=== PATIENT | female | born 1970 | race Hispanic/Latino ===

== ENCOUNTER 2018-04-07 04:35 | Inpatient (IN) | payer MEDICARE ==
--- NOTE | 2018-04-07 04:52 | ED PDOC ---
Arrival/HPI - General Chief Complaint: Trauma Time Seen by Provider: 04/07/18 04:40 Historian: Patient - History of Present Illness Narrative History of Present Illness (Text): 04/07/18 04:52 Lyubov Arreaga is a 47 year old female, whose past medical history includes multiple sclerosis, chronic back pain s/p lumbar surgery, and PCOS, who presents to the ED complaining of generalized weakness, chronic secondary to her MS. Patient notes her generalized weakness has increased over the last few days and notes her legs have been giving out from under her. Patient reports she has fallen a few times and notes she injured her right knee. Patient denies any history of head trauma, loss of consciousness, dizziness, headache, chest pain, shortness of breath, nausea, vomiting, neck pain, or any other complaints. PMD: Dr. Willis Neurologist: Dr. Díaz Symptom Onset: Gradual Symptom Course: Unchanged Activities at Onset: Light Context: Home Past Medical History - Provider Review Nursing Documentation Reviewed: Yes - Infectious Disease Hx of Infectious Diseases: None - Cardiac Hx Cardiac Disorders: Yes Hx Hypertension: Yes - Pulmonary Hx Respiratory Disorders: No - Neurological Hx Neurological Disorder: Yes Other/Comment: ms - HEENT Hx HEENT Disorder: No - Renal Hx Dialysis: No - Endocrine/Metabolic Hx Endocrine Disorders: Yes Hx Diabetes Mellitus Type 2: Yes - Hematological/Oncological Hx Blood Disorders: No - Integumentary Hx Dermatological Disorder: No - Musculoskeletal/Rheumatological Hx Musculoskeletal Disorders: No - Gastrointestinal Hx Gastrointestinal Disorders: No - Genitourinary/Gynecological Hx Genitourinary Disorders: No - Psychiatric Hx Substance Use: No - Surgical History Hx Section: Yes Family/Social History - Physician Review Nursing Documentation Reviewed: Yes Family/Social History: Unknown Family HX Smoking Status: Never Smoked Hx Alcohol Use: No Hx Substance Use: No Allergies/Home Meds Allergies/Adverse Reactions: Allergies dimethyl fumarate [From Tecfidera] Allergy (Verified 04/07/18 04:43) ANGIOEDEMA nitrofurantoin [From Macrobid] Allergy (Verified 04/07/18 04:43) RASH Home Medications: Home Meds Medication Instructions Recorded Confirmed Gabapentin 600 mg PO TID 03/25/13 03/25/13 Metformin Hydrochloride [Metformin] 500 mg PO BID 03/25/13 03/25/13 Metoprolol Succinate XL [Toprol XL] 50 mg PO DAILY 03/25/13 03/25/13 Teriflunomide [Aubagio] 7 mg PO DAILY 03/25/13 03/25/13 Review of Systems - Physician Review All systems were reviewed & negative as marked: Yes - Review of Systems Constitutional: Other (+generalized weakness). absent: Fevers Eyes: Normal ENT: Normal Respiratory: Normal. absent: SOB, Cough Cardiovascular: Normal. absent: Chest Pain Gastrointestinal: Normal. absent: Abdominal Pain, Diarrhea, Nausea, Vomiting Genitourinary Female: Normal Musculoskeletal: Arthralgias (+right knee pain) Skin: Normal. absent: Rash Neurological: Normal. absent: Headache, Dizziness Endocrine: Normal Hemo/Lymphatic: Normal Psychiatric: Normal Physical Exam Vital Signs Reviewed: Yes Temperature: Afebrile Blood Pressure: Normal Pulse: Regular Respiratory Rate: Normal Appearance: Positive for: Well-Appearing, Non-Toxic, Comfortable Pain Distress: None Mental Status: Positive for: Alert and Oriented X 3 - Systems Exam Head: Present: Atraumatic, Normocephalic Pupils: Present: PERRL Extroacular Muscles: Present: EOMI Conjunctiva: Present: Normal Ears: Present: NORMAL TM Mouth: Present: Moist Mucous Membranes Pharnyx: Present: Normal Neck: Present: Normal Range of Motion Respiratory/Chest: Present: Clear to Auscultation, Good Air Exchange. No: Respiratory Distress, Accessory Muscle Use Cardiovascular: Present: Regular Rate and Rhythm, Normal S1, S2. No: Murmurs Abdomen: No: Tenderness, Distention, Peritoneal Signs Back: Present: Normal Inspection Upper Extremity: Present: Normal Inspection. No: Cyanosis, Edema Lower Extremity: Present: Tenderness (Pain in right knee with flexion). No: Edema Neurological: Present: GCS=15, CN II-XII Intact, Speech Normal, Motor Func Grossly Intact, Normal Sensory Function Skin: Present: Warm, Dry, Normal Color. No: Rashes Psychiatric: Present: Alert, Oriented x 3, Normal Insight, Normal Concentration Medical Decision Making ED Course and Treatment: 04/07/18 04:52 Impression: 47 year old female complaining of generalized weakness, frequent falls, and right knee pain. Plan: -- EKG -- CXR -- XR Right Knee -- Labs, cardiac enzymes --Reassess Prior Visits: Notes and results from previous visits were reviewed. Progress Notes: Reviewed EKG, sinus tachycardia at [address] or T wave elevations or depressions. Normal intervals.] 04/07/18 06:18 Reviewed radiology, CXR shows poor inspiratory film, no acute processes. XR Right Knee shows no acute processes/fracture. 04/07/18 06:55 Patient to be placed on the hospitalist service for further evaluation/neurology consultation/hospitalist notified/awaiting callback/endorsed to oncoming emergency department attending - RAD Interpretation Director Immunology: ED Physician - EKG Interpretation Interpreted by ED Physician: Yes Type: 12 lead EKG - Scribe Statement The provider has reviewed the documentation as recorded by the Scribe Radhika Elizabeth All medical record entries made by the Scribe were at my direction and personally dictated by me. I have reviewed the chart and agree that the record accurately reflects my personal performance of the history, physical exam, medical decision making, and the department course for this patient. I have also personally directed, reviewed, and agree with the discharge instructions and disposition. Disposition/Present on Arrival - Present on Arrival Any Indicators Present on Arrival: No History of DVT/PE: No History of Uncontrolled Diabetes: No Urinary Catheter: No History of Decub. Ulcer: No History Surgical Site Infection Following: None - Disposition Have Diagnosis and Disposition been Completed?: Yes Diagnosis: Exacerbation of multiple sclerosis, Frequent falls Disposition: HOSPITALIZED Disposition Time: 06:54 Patient Plan: Observation Condition: STABLE Forms: [employer] (Djiboutian)
[2018-04-07 06:39] LABS: ALB/GLOB RATIO 1.1 (1.1-1.8); ALBUMIN 4.3 g/dL (3.0-4.8); ALT/SGPT 7 U/L (7-56); AST/SGOT 24 U/L (14-36); BLOOD UREA NITROGEN 15 mg/dL (7-21); CALCIUM 9.4 mg/dL (8.4-10.5); GFR NON-AFRICAN AMERICAN > 60; INR 0.92; PARTIAL THROMBOPLASTIN TIME 32.3 Seconds (26.9-38.3); PROTHROMBIN TIME 10.4 SECONDS (9.4-12.5)
[2018-04-07 06:50] LABS: TROPONIN I < 0.01 ng/mL
[2018-04-07 07:10] LABS: HEMOGLOBIN 13.4 g/dL (12.0-16.0); MEAN CELL VOLUME 86.6 fl (80.0-105.0); MEAN CORPUSCULAR HEMOGLOBIN 28.1 pg (25.0-35.0); MEAN CORPUSCULAR HGB CONC 32.4 g/dl (31.0-37.0); MEAN PLATELET VOLUME 10.7 fl (7.0-11.0); RBC 4.77 10^6/uL (3.5-6.1); WHITE BLOOD COUNT 7.5 10^3/uL (4.5-11.0)
[2018-04-07] MEDS ORDERED: Potassium Chloride 40 mEq/30 ml LIQ UD PO STA (07:15)
--- NOTE | 2018-04-07 08:38 | CP.PCM.HP ---
<Leonel Siddiqi - Last Filed: 04/07/18 10:09> History of Present Illness - History of Present Illness History of Present Illness: Leonel Siddiqi D.O. PGY-3, Internal Medicine Resident, Hospitalist H&P CC: multiple falls for 2 weeks 47 year old female with a PMH of MS on [facility] and HTN who presents for complaints of multiple falls for the last 2 weeks. Patient states that she has fallen approximately 4 times in the last 2 weeks, however just recently has fallen 2 of those times in the last 24 hours. Patient notes that she feels weakness of the lower extremities and they give out under her. Also notes that she has likely been falling more as she has been having a harder time holding her urine which is also worsening. Patient does also admit that her vision has b een a bit more blurry over the last month. States that she actually has an appt to see her Neurologist Dr. Díaz tomorrow 04/08 at 230pm but was worried so she decided to come in. Denies any other symptoms at this time. Denies hitting her head, loss of consciousness, or tongue bitting during the falls. Did hurt her right knee on one fall but pain is manageable. Denies dizziness unless she lays flat which is chronic. PMH: as above PSH: , "back surgery," esophageal myomoty SH: 30 pack years [id number] years, quit more than 10 years ago, little to no alcohol, denies drug use FH: noncontributory Meds: reviewed Pharmacy: [facility] specialty pharmacy for [facility] PMD: Dr. Willis Neurologist: Dr. Díaz Present on Admission - Present on Admission Any Indicators Present on Admission: No Review of Systems - Constitutional Constitutional: absent: Chills, Fever - EENT Eyes: Blurred Vision, Change in Vision Ears: absent: Disequilibrium, Dizziness Nose/Mouth/Throat: absent: Sinus Pressure, Dry Mouth - Cardiovascular Cardiovascular: absent: Chest Pain, Edema - Respiratory Respiratory: absent: Cough, Dyspnea - Gastrointestinal Gastrointestinal: absent: Abdominal Pain, Diarrhea - Genitourinary Genitourinary: Urinary Incontinence, Urinary Frequency - Musculoskeletal Musculoskeletal: Muscle Weakness. absent: Myalgias - Integumentary Integumentary: absent: Rash, Skin Pain - Neurological Neurological: Frequent Falls. absent: Disequilibrium, Dizziness, Focal Weakness Past Patient History - Infectious Disease Hx of Infectious Diseases: None - Past Social History Smoking Status: Never Smoked - CARDIAC Hx Cardiac Disorders: Yes Hx Hypertension: Yes - PULMONARY Hx Respiratory Disorders: No - NEUROLOGICAL Hx Neurological Disorder: Yes Other/Comment: ms - HEENT Hx HEENT Problems: No - RENAL Hx Dialysis: No - ENDOCRINE/METABOLIC Hx Endocrine Disorders: Yes Hx Diabetes Mellitus Type 2: Yes - HEMATOLOGICAL/ONCOLOGICAL Hx Blood Disorders: No - INTEGUMENTARY Hx Dermatological Problems: No - MUSCULOSKELETAL/RHEUMATOLOGICAL Hx Musculoskeletal Disorders: No - GASTROINTESTINAL Hx Gastrointestinal Disorders: No - GENITOURINARY/GYNECOLOGICAL Hx Genitourinary Disorders: No - PSYCHIATRIC Hx Substance Use: No - SURGICAL HISTORY Hx Section: Yes Meds Allergies/Adverse Reactions: Allergies Allergy/AdvReac Type Severity Reaction Status Date / Time dimethyl fumarate Allergy ANGIOEDEMA Verified 04/07/18 04:43 [From Tecfidera] nitrofurantoin Allergy RASH Verified 04/07/18 04:43 [From Macrobid] Physical Exam - Constitutional Appears: Non-toxic, No Acute Distress - Head Exam Head Exam: ATRAUMATIC, NORMOCEPHALIC - Eye Exam Eye Exam: EOMI, PERRL. absent: Scleral icterus - ENT Exam ENT Exam: Mucous Membranes Moist, Normal Oropharynx - Neck Exam Neck exam: Positive for: Normal Inspection Additional comments: soft, supple - Respiratory Exam Respiratory Exam: Clear to Auscultation Bilateral. absent: Rales, Rhonchi, Wheezes - Cardiovascular Exam Cardiovascular Exam: RRR, +S1, +S2. absent: Gallop, Rubs - GI/Abdominal Exam GI & Abdominal Exam: Normal Bowel Sounds, Soft. absent: Distended - Extremities Exam Extremities exam: Positive for: calf tenderness (right), normal capillary refill. Negative for: pedal edema - Neurological Exam Additional comments: AAOx4, CN2-12 grossly intact, downgoing Babinski's BL, 5/5 UE strength, 3/5 R HF, 4-/4 L HF, 5/5 BL KF, 5/5 BL PF, 4+/5 BL DF, sensory levels intact throughout Results - Vital Signs Recent Vital Signs: Last Vital Signs Temp 98.7 F 04/07/18 04:53 Pulse 103 H 04/07/18 07:36 Resp 18 04/07/18 07:36 BP 149/92 H 04/07/18 07:36 Pulse Ox 97 04/07/18 07:36 - Labs Result Diagrams: 04/07/18 05:29 04/07/18 05:29 Labs: Laboratory Results - last 24 hr 04/07/18 04/07/18 04/07/18 05:29 05:29 05:29 WBC 7.5 RBC 4.77 Hgb 13.4 Hct 41.3 MCV 86.6 MCH 28.1 MCHC 32.4 RDW 14.0 Plt Count 276 MPV 10.7 PT 10.4 INR 0.92 APTT 32.3 Sodium 139 Potassium 3.5 L Chloride 103 Carbon Dioxide 26 Anion Gap 13 BUN 15 Creatinine 0.7 Est GFR ( Amer) > 60 Est GFR (Non-Af Amer) > 60 Random Glucose 97 Calcium 9.4 Total Bilirubin 0.4 AST 24 ALT 7 Alkaline Phosphatase 119 Lactate Dehydrogenase 435 Total Creatine Kinase 59 Troponin I < 0.01 Total Protein 8.1 Albumin 4.3 Globulin 3.8 Albumin/Globulin Ratio 1.1 Assessment & Plan - Assessment and Plan (Free Text) Assessment: 47 year old female with a PMH of MS on Aubagio and HTN who presents for complaints of multiple falls for the last 2 weeks. Plan: 1. Frequent falls Placed in observation Likely 2/2 worsening of her MS Neuro consulted Discussed with her outpatient neurologist Dr. Díaz, will pulse 1g of solumedrol now, 1g of solumedrol tomorrow morning and he will see her in the office Wanted MRI, patient ADAMANTLY refuses, states she can only do sitting MRIs and has done only these for 2 years, educated on the importance of getting this imaging, the risks associated with delaying it, and patient states as long as she can have something for vertigo and anxiety will attempt, will given 10mg valium x1 Discussed with MRI Ordered MRI of brain, cervical and lumbar spine w/ and w/o CXR and knee xray appear negative for any acute fractures, will follow official reads Continue aubagio High fall risk protocol HOB 30 Aspiration precautions Neurochecks q4h Physical therapy PRN motrin for pain 2. Urinary frequency Also likely 2/2 worsening MS Will order UA Started wick catheter Will monitor 3. Right calf pain Given altered mobility will order BL LE dupplex Follow results Started lovenox 40mg SC QD for now 4. Hypokalemia Repleted with KCl 40mEq, will recheck CMP tomorrow AM 5. HTN Continue home regimen Patient was seen and examined and case to be discussed with attending physician. - Date & Time Date: 04/07/18 Time: 08:00 <Liliana Tang - Last Filed: 04/07/18 14:30> Results - Vital Signs Recent Vital Signs: Last Vital Signs Temp 98.7 F 04/07/18 04:53 Pulse 94 H 04/07/18 11:04 Resp 16 04/07/18 09:15 BP 141/100 H 04/07/18 11:04 Pulse Ox 99 04/07/18 09:15 - Labs Result Diagrams: 04/07/18 05:29 04/07/18 05:29 Labs: Laboratory Results - last 24 hr 04/07/18 04/07/18 04/07/18 05:29 05:29 05:29 WBC 7.5 RBC 4.77 Hgb 13.4 Hct 41.3 MCV 86.6 MCH 28.1 MCHC 32.4 RDW 14.0 Plt Count 276 MPV 10.7 PT 10.4 INR 0.92 APTT 32.3 Sodium 139 Potassium 3.5 L Chloride 103 Carbon Dioxide 26 Anion Gap 13 BUN 15 Creatinine 0.7 Est GFR ( Amer) > 60 Est GFR (Non-Af Amer) > 60 Random Glucose 97 Calcium 9.4 Total Bilirubin 0.4 AST 24 ALT 7 Alkaline Phosphatase 119 Lactate Dehydrogenase 435 Total Creatine Kinase 59 Troponin I < 0.01 Total Protein 8.1 Albumin 4.3 Globulin 3.8 Albumin/Globulin Ratio 1.1 Attending/Attestation - Attestation I have personally seen and examined this patient.: Yes I have fully participated in the care of the patient.: Yes I have reviewed all pertinent clinical information: Yes Notes (Text): Attending note; Patient seen and examined with resident. Patient is alert and awake. Complaining of bilateral lower extremity weakness. Patient has recurrent falls in the past 2 weeks. Denies any fevers, chills. Denies any urinary, bowel symptoms. Patient urinates frequently. According to her Symptoms are worsening slowly due to progressive multiple scl erosis. Denies any bowel or bladder incontinence. Patient is a 47 year old female with PMH of MS on Aubagio and HTN who presents for complaints of multiple falls for the last 2 weeks. Patient states that she has fallen approximately 4 times in the last 2 weeks, however just recently has fallen 2 of those times in the last 24 hours. 1. Acute MS exacerbation; patient is started on IV Solu-Medrol. Patient has progressive multiple sclerosis. Follows up with Dr. Díaz as outpatient. Currently on aubagio. We will up with neurology closely. 2. MRI of the brain and spine ordered. 3. Aggressive lower extremity weakness or numbness .patient has multiple falls in the past 2 weeks . Patient started using walker at home for the past 2 weeks .physical therapy evaluation requested. might Need rehab placement. 4. Hypertension; continue metoprolol. 5. GI/DVT prophylaxis. 6. Obesity ; diet, exercise and therapy recommended. Upon discharge the patient will follow up with PMD Dr. Willis. needs Close follow-up with neurology Dr. Díaz.
[2018-04-07] MEDS ORDERED: methylPREDNISolone 1 GM in Sodium Chloride 0.9% 250 ML IV ONE (09:45)
--- NOTE | 2018-04-07 09:56 | RAD ---
Date of service: 04/07/2018 HISTORY: weakness COMPARISON: 03/25/2013 FINDINGS: LUNGS: There are low lung volumes. The lungs are clear. No focal consolidation. PLEURA: No pleural effusions or pneumothorax. CARDIOVASCULAR: The heart is normal in size. No aortic atherosclerotic calcifications present. OSSEOUS STRUCTURES: Within normal limits for the patient's age. VISUALIZED UPPER ABDOMEN: Normal. OTHER FINDINGS: None. IMPRESSION: No active pulmonary disease. Low lung volumes may be related to poor inspiratory effort.
--- NOTE | 2018-04-07 10:19 | CARD ---
APPROVED REPORT Date of service: 04/07/2018 EKG Measurement Heart [id number] <Conclusion> Sinus tachycardia Otherwise normal ECG
[2018-04-07] MEDS: Metoprolol Succinate 50 mg XL Tab PO SCH (11:04)
[2018-04-07] MEDS: Enoxaparin 40 mg Syringe SC SCH (11:05)
[2018-04-07] MEDS: TERIFLUNOMIDE 7 MG PO SCH (11:05)
--- NOTE | 2018-04-07 11:25 | RAD ---
Date of service: 04/07/2018 PROCEDURE: Right Knee Radiographs. HISTORY: injury COMPARISON: None. FINDINGS: BONES: Bone alignment and mineralization are normal. There is no acute displaced fracture or bone destruction. JOINTS: Normal. No osteoarthritis. JOINT EFFUSION: There is a small suprapatellar joint effusion. OTHER FINDINGS: None. IMPRESSION: No acute displaced fracture or dislocation.
--- NOTE | 2018-04-07 13:06 | US ---
HISTORY: Leg pain and swelling. Evaluate for DVT PHYSICIAN(S): Mohan Shah MD. TECHNIQUE: Duplex sonography and color-flow Doppler with graded compression were used to evaluate the deep venous systems of both lower extremities. FINDINGS: The visualized deep venous systems of both lower extremities are sonographically normal and compressible. Normal wave forms and augmentation are seen. There is no sonographic evidence for deep venous thrombosis in the visualized segments of both lower extremities. IMPRESSION: No sonographic evidence for deep venous thrombosis in the visualized segments of both lower extremities.
[2018-04-07 15:23] VITALS: BMI 44.8
[2018-04-07] MEDS ORDERED: Gadodiamide 287 MG/ML VIAL (15ML) IV ONE (15:47)
--- NOTE | 2018-04-07 16:31 | CP.PCM.CON ---
History of Present Illness - History of Present Illness History of Present Illness: 47 yr old woman who has a history MS, on Aubagio from outside neurologist presents to [facility], with several day history of generalized leg weakness, superimposed on lower back pain. She has a history of lower back surgery and is now complaining of pain which is 9/10, made worse by walking, relieved by rest. She denies urinary or fecal incontinence, MVA or trauma. She has been compliant with her medications and has no side effects from Aubagio. MRI L S spine with iggy has been done and results are pending. ROS: malaise, fatigue, weakness, no nausea, no vomiting, no diarrhea. PMH/PSH: MS FH/Sh : no tobacco, no etoh. All: nitrofurantoin, dimethyl fumarate. On exam: AAOXx3. PERRL. CN 2-12 normal. EOMI. motor; straight leg raising test positive bilaterally. Sensory: no sensory level. Cerebellar: no dysmetria. gait is guarded, and associated with pain. Review of Systems - Constitutional Constitutional: absent: As Per HPI, Anorexia, Chills, Daytime Sleepiness, Excessive Sweating, Fatigue, Fever, Frequent Falls, Headache, Increased Appetite, Lethargy, Malaise, Night Sweats, Snoring, Sleep Apnea, Weight Gain, Weight Loss, Weakness, Other - EENT Eyes: absent: As Per HPI, Blind Spots, Blurred Vision, Change in Vision, Decreased Night Vision, Diplopia, Discharge, Dry Eye, Exophthalmos, Floaters, Irritation, Itchy Eyes, Loss of Peripheral Vision, Pain, Photophobia, Requires Corrective Lenses, Sees Flashes, Spots in Vision, Tunnel Vision, Other Visual Disturbances, Loss of Vision, Other Ears: absent: As Per HPI, Decreased Hearing, Ear Discharge, Ear Pain, Tinnitus, Abnormal Hearing, Disequilibrium, Dizziness, Other - Neurological Neurological: Abnormal Gait, Focal Weakness, Weakness. absent: As Per HPI, Abnormal Hearing, Abnormal Movements, Abnormal Speech, Behavioral Changes, Burning Sensations, Confusion, Convulsions, Disequilibrium, Dizziness, Numbness, Frequent Falls, Headaches, Lack of Coordination, Loss of Vision, Memory Loss, Paresthesias, Radicular Pain, Restless Legs, Sensory Deficit, Syncope, Tingling, Tremor, Vertigo, Other Visual Disturbances, Other Past Patient History - Infectious Disease Hx of Infectious Diseases: None - Past Social History Smoking Status: unknown - CARDIAC Hx Cardiac Disorders: Yes Hx Hypertension: Yes - PULMONARY Hx Respiratory Disorders: No - NEUROLOGICAL Hx Neurological Disorder: Yes Other/Comment: ms - HEENT Hx HEENT Problems: No - RENAL Hx Dialysis: No - ENDOCRINE/METABOLIC Hx Endocrine Disorders: Yes Hx Diabetes Mellitus Type 2: Yes - HEMATOLOGICAL/ONCOLOGICAL Hx Blood Disorders: No - INTEGUMENTARY Hx Dermatological Problems: No - MUSCULOSKELETAL/RHEUMATOLOGICAL Hx Falls: Yes - GASTROINTESTINAL Hx Gastrointestinal Disorders: No - GENITOURINARY/GYNECOLOGICAL Hx Genitourinary Disorders: No - PSYCHIATRIC Hx Substance Use: No - SURGICAL HISTORY Hx Section: Yes Meds Allergies/Adverse Reactions: Allergies Allergy/AdvReac Type Severity Reaction Status Date / Time dimethyl fumarate Allergy ANGIOEDEMA Verified 04/07/18 04:43 [From Tecfidera] nitrofurantoin Allergy RASH Verified 04/07/18 04:43 [From Macrobid] - Medications Medications: Current Medications Enoxaparin Sodium (Lovenox) 40 mg SC DAILY [facility]; Protocol Last Admin: 04/07/18 11:05 Dose: 40 mg Methylprednisolone 1 gm/ (Sodium Chloride) 100 mls @ 200 mls/hr IVPB ONCE ONE Stop: 04/08/18 08:01 Ibuprofen (Motrin Tab) 400 mg PO Q6H PRN PRN Reason: Pain, Mild (1-3) Last Admin: 04/07/18 11:03 Dose: 400 mg Metoprolol Succinate (Toprol Xl) 50 mg PO DAILY [facility] Last Admin: 04/07/18 11:04 Dose: 50 mg Non-Formulary Medication (Teriflunomide [Aubagio]) 7 mg PO DAILY [facility] Last Admin: 04/07/18 11:05 Dose: Not Given Pantoprazole Sodium (Protonix Inj) 40 mg IVP DAILY [facility] Results - Vital Signs Recent Vital Signs: Last Vital Signs Temp 98.6 F 04/07/18 15:58 Pulse 83 04/07/18 15:58 Resp 18 04/07/18 15:58 BP 129/86 04/07/18 15:58 Pulse Ox 98 04/07/18 15:58 - Labs Result Diagrams: 04/07/18 05:29 04/07/18 05:29 Labs: Laboratory Results - last 24 hr 04/07/18 04/07/1804/07/19 05:29 05:29 05:29 WBC 7.5 RBC 4.77 Hgb 13.4 Hct 41.3 MCV 86.6 MCH 28.1 MCHC 32.4 RDW 14.0 Plt Count 276 MPV 10.7 PT 10.4 INR 0.92 APTT 32.3 Sodium 139 Potassium 3.5 L Chloride 103 Carbon Dioxide 26 Anion Gap 13 BUN 15 Creatinine 0.7 Est GFR ( Amer) > 60 Est GFR (Non-Af Amer) > 60 Random Glucose 97 Calcium 9.4 Total Bilirubin 0.4 AST 24 ALT 7 Alkaline Phosphatase 119 Lactate Dehydrogenase 435 Total Creatine Kinase 59 Troponin I < 0.01 Total Protein 8.1 Albumin 4.3 Globulin 3.8 Albumin/Globulin Ratio 1.1 Assessment & Plan - Assessment and Plan (Free Text) Assessment: MR L/S spine with iggy: Report pending. A/P: 47 yr old woman with MS, who may be having an exacerbation. We will obtain official MRi L S spine report, and order MRI C spine with iggy. Plan: 1. MRI C spine with iggy. 2. Official MRI L spine reading. 3. Start solumedrol 1000 mg IV now and continue daily. 4. PPI Thank you Dr. Egan Neurology
--- NOTE | 2018-04-07 16:58 | MRI ---
Date of service: 04/07/2018 PROCEDURE: MR LUMBAR SPINE WITH AND WITHOUT CONTRAST HISTORY: weakness, urinary symptoms, known MS COMPARISON: None available. TECHNIQUE: Multiecho multiplanar sequences were performed through the lumbar spine with and without the use of intravenous contrast. 15 cc Omniscan was injected intravenously. FINDINGS: There is degenerative 7 mm retrolisthesis of L2 on L3 and L3 on L4. There is exaggerated lumbar lordosis. There is also exaggerated thoracic kyphosis in the lower thoracic spine. There is no acute fracture or spondylolysis. Is a large round hemangioma in the L2 vertebral body. There are degenerative endplate marrow changes at T12-L1, L1-2, L2-3 and L3-4. Otherwise bone marrow signal is within normal limits. 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 The conus medullaris terminates at a normal level. There is no intrinsic signal abnormality in the visualized thoracic cord. The there is undulation of the nerve roots of cauda equina due to congenitally narrow spinal canal. T12-L1: Mild posterior disc bulge without spinal canal stenosis or neural foraminal narrowing. L1-2: Mild posterior disc bulge and mild spinal canal stenosis. No neural foraminal narrowing. L2-3: Mild posterior disc bulge without central spinal canal stenosis. No neural foraminal narrowing. L3-4: Diffuse posterior disc bulge in conjunction with moderate ligamentum flavum infolding result in moderate to severe spinal canal stenosis. Moderate bilateral facet arthropathy contribute to severe neural foraminal narrowing. L4-5: Broad-based central disc protrusion indents the ventral thecal sac with mild spinal canal stenosis. Severe bilateral facet arthropathy, worse on the right contribute to moderate right and severe left neural foraminal narrowing. L5-S1: Broad-based central disc protrusion in conjunction with moderate ligamentum flavum infolding result in moderate to severe spinal canal stenosis. Severe bilateral facet arthropathy contribute to severe neural foraminal narrowing. OTHER FINDINGS: S there is no abnormal intramedullary or leptomeningeal enhancement. There is mild fatty atrophy of the paraspinous muscles. The imaged portion of the retroperitoneum is within normal limits. IMPRESSION: 1. No acute fracture or marrow infiltrative process. 2. Exaggerated thoracic kyphosis in the lower thoracic spine and exaggerated lumbar lordosis. 3. Multilevel degenerative disc disease superimposed on a congenitally narrow spinal canal, worse at L3-4 with moderate to severe spinal canal stenosis and severe neural foraminal narrowing. 4. Normal appearance of the conus medullaris without abnormal enhancement. 5. Additional comments as described above.
[2018-04-07 22:05] LABS: URINE BILIRUBIN NEGATIVE (NEGATIVE); URINE BLOOD NEGATIVE (NEGATIVE); URINE GLUCOSE (UA) NEGATIVE (NEGATIVE); URINE LEUKOCYTE ESTERASE NEGATIVE Leu/uL (NEGATIVE); URINE PROTEIN NEGATIVE mg/dL (<30 mg/dL); URINE UROBILINOGEN 0.2 E.U./dL (<1 E.U./dL)
[2018-04-07 22:13] LABS: URINE APPEARANCE CLEAR (CLEAR); URINE COLOR YELLOW (YELLOW)
[2018-04-08] MEDS: Pantoprazole 40 mg EC Tab PO SCH (06:03)
--- NOTE | 2018-04-08 07:36 | CP.PCM.PN ---
<Renaldo Connor - Last Filed: 04/08/18 16:37> Subjective - Date & Time of Evaluation Date of Evaluation: 04/08/18 Time of Evaluation: 07:36 - Subjective Subjective: PGY-1 Medicine Progress note for Dr. Lombardo Patient seen and examined at bedside. No acute events overnight. Patient states that she still feels that her legs are weak, especially on her right leg. She states that she is able to walk and ambulate with the help of the physical therapist. She denies any headache, chest pain, shortness of breath, abdominal pain, diarrhea, or urinary symptoms. Objective - Vital Signs/Intake and Output Vital Signs (last 24 hours): Temp Pulse Resp BP Pulse Ox 98 F 97 H 18 131/76 95 04/07/18 21:38 04/07/18 21:38 04/07/18 21:38 04/07/18 21:38 04/07/18 21:38 - Medications Medications: Current Medications Enoxaparin Sodium (Lovenox) 40 mg SC DAILY [facility]; Protocol Last Admin: 04/07/18 11:05 Dose: 40 mg Methylprednisolone 1 gm/ (Sodium Chloride) 100 mls @ 200 mls/hr IVPB ONCE ONE Stop: 04/08/18 08:01 Ibuprofen (Motrin Tab) 400 mg PO Q6H PRN PRN Reason: Pain, Mild (1-3) Last Admin: 04/07/18 11:03 Dose: 400 mg Metoprolol Succinate (Toprol Xl) 50 mg PO DAILY [facility] Last Admin: 04/07/18 11:04 Dose: 50 mg Non-Formulary Medication (Teriflunomide [Aubagio]) 7 mg PO DAILY [facility] Last Admin: 04/07/18 11:05 Dose: Not Given Pantoprazole Sodium (Protonix Ec Tab) 40 mg PO 0600 [facility] Last Admin: 04/08/18 06:03 Dose: 40 mg - Labs Labs: 04/07/18 05:29 04/07/18 05:29 PT 10.4 SECONDS (9.4-12.5) 04/07/18 05:29 INR 0.92 04/07/18 05:29 APTT 32.3 Seconds (26.9-38.3) 04/07/18 05:29 - Constitutional Appears: Well, Non-toxic, No Acute Distress - Head Exam Head Exam: ATRAUMATIC, NORMAL INSPECTION - Eye Exam Eye Exam: EOMI, Normal appearance Pupil Exam: NORMAL ACCOMODATION, PERRL - ENT Exam ENT Exam: Mucous Membranes Moist - Respiratory Exam Respiratory Exam: Clear to Ausculation Bilateral. absent: Rales, Rhonchi, Wheezes, Respiratory Distress - Cardiovascular Exam Cardiovascular Exam: REGULAR RHYTHM, +S1, +S2. absent: Gallop, Rubs, Murmur - GI/Abdominal Exam GI & Abdominal Exam: Soft, Normal Bowel Sounds. absent: Tenderness - Extremities Exam Extremities Exam: absent: Calf Tenderness, Pedal Edema - Neurological Exam Neurological Exam: Alert, Awake, CN II-XII Intact, Oriented x3 Neuro motor strength exam: Left Upper Extremity: 5, Right Upper Extremity: 5, Left Lower Extremity: 5, Right Lower Extremity: 4 Additional comments: Sensations intact in all extremities. Patellar reflex 1/4 on the right and 2/4 on the left. - Psychiatric Exam Psychiatric exam: Normal Affect, Normal Mood - Skin Skin Exam: Dry, Intact, Normal Color, Warm Assessment and Plan - Assessment and Plan (Free Text) Assessment: Patient is a 47 year old female with a PMH of MS on Aubagio and HTN who presents for complaints of multiple falls for the last 2 weeks. Plan: Frequent falls - Likely 2/2 worsening of her MS - MRI spine: No acute fracture or marrow infiltrative process. Exaggerated thoracic kyphosis in the lower thoracic spine and exaggerated lumbar lordosis. Multilevel degenerative disc disease superimposed on a congenitally narrow spinal canal, worse at L3-4 with moderate to severe spinal canal stenosis and severe neural foraminal narrowing. - Neuro consulted, Dr. Egan - Neurosurgery consulted, Dr. Ferguson - Neurosurgery recommends patient to follow up with a spine-ortho at [facility] or [place] or [place] - Patient received 2 doses of Solumedrol 1g as per instructions of her outpatient neurologist, Dr. Díaz - Patient will need to follow up with Dr. Díaz in her office upon discharge - Continue Aubagio 7mg PO QD - High fall risk protocol - Physical therapy recommends patient to go to [facility] Urinary frequency - Also likely 2/2 worsening MS - UA: negative Right calf pain - LE duplex: No sonographic evidence for deep venous thrombosis in the visualized segments of both lower extremities. - Knee Xray: No acute displaced fracture or dislocation. - Start Gabapentin 300mg PO TID Hypokalemia, resolved - Replete as needed - Continue to monitor with daily labs HTN - Continue home Metoprolol 50mg PO QD Prophylaxis - Lovenox 40mg SC QD - Protonix 40mg PO QD Disposition: PT recommended that patient go to [facility] upon discharge. Patient was seen and case discussed with attending, Dr. Lombardo <Taj Lombardo - Last Filed: 04/09/18 19:59> Objective - Vital Signs/Intake and Output Vital Signs (last 24 hours): Temp Pulse Resp BP Pulse Ox 97.8 F 67 18 122/79 98 04/09/18 14:00 04/09/18 14:00 04/09/18 14:00 04/09/18 14:00 04/09/18 14:00 Intake and Output: 04/09/18 04/10/18 18:59 06:59 Intake Total 1020 180 Output Total 500 300 Balance 520 -120 - Medications Medications: Current Medications Enoxaparin Sodium (Lovenox) 40 mg SC DAILY [facility]; Protocol Last Admin: 04/09/18 10:35 Dose: 40 mg Gabapentin (Neurontin) 300 mg PO TID [facility]; Protocol Last Admin: 04/09/18 17:42 Dose: 300 mg Ibuprofen (Motrin Tab) 400 mg PO Q6H PRN PRN Reason: Pain, Mild (1-3) Last Admin: 04/07/18 11:03 Dose: 400 mg Metoprolol Succinate (Toprol Xl) 50 mg PO DAILY [facility] Last Admin: 04/09/18 10:38 Dose: 50 mg Teriflunomide [ Aubagio] 14 Mg (Home Med) 14 mg PO DAILY [facility] Last Admin: 04/09/18 13:01 Dose: 14 mg Pantoprazole Sodium (Protonix Ec Tab) 40 mg PO 0600 [facility] Last Admin: 04/09/18 06:16 Dose: 40 mg - Labs Labs: 04/09/18 07:00 04/09/18 07:00 PT 10.4 SECONDS (9.4-12.5) 04/07/18 05:29 INR 0.92 04/07/18 05:29 APTT 32.3 Seconds (26.9-38.3) 04/07/18 05:29 Attending/Attestation - Attestation I have personally seen and examined this patient.: Yes I have fully participated in the care of the patient.: Yes I have reviewed all pertinent clinical information, including history, physical exam and plan: Yes
[2018-04-08] MEDS ORDERED: methylPREDNISolone 1 GM in Sodium Chloride 0.9% 100 ML IVPB ONE (08:00)
[2018-04-08 08:19] LABS: HEMOGLOBIN 12.5 g/dL (12.0-16.0); LYMPH # 0.7 (1.2-3.4); LYMPH % 9.5 % (22.0-35.0); MEAN CELL VOLUME 87.2 fl (80.0-105.0); MEAN CORPUSCULAR HEMOGLOBIN 27.5 pg (25.0-35.0); MEAN CORPUSCULAR HGB CONC 31.6 g/dl (31.0-37.0); MEAN PLATELET VOLUME 10.5 fl (7.0-11.0); MONO # 0.2 (0.1-0.6); MONO % 2.5 % (1.0-6.0); RBC 4.54 10^6/uL (3.5-6.1); RED CELL DISTRIBUTION WIDTH 14.1 % (11.5-14.5); WHITE BLOOD COUNT 6.9 10^3/uL (4.5-11.0)
[2018-04-08 09:00] LABS: ALB/GLOB RATIO 1.1 (1.1-1.8); ALBUMIN 3.9 g/dL (3.0-4.8); ALT/SGPT 11 U/L (7-56); AST/SGOT 19 U/L (14-36); BLOOD UREA NITROGEN 14 mg/dL (7-21); CALCIUM 9.6 mg/dL (8.4-10.5); GFR NON-AFRICAN AMERICAN > 60
[2018-04-08] MEDS: Enoxaparin 40 mg Syringe SC SCH (11:02)
[2018-04-08] MEDS: Metoprolol Succinate 50 mg XL Tab PO SCH (11:04)
[2018-04-08] MEDS: TERIFLUNOMIDE 7 MG PO SCH (11:34)
--- NOTE | 2018-04-08 13:33 | CP.PCM.PN ---
Subjective - Date & Time of Evaluation Date of Evaluation: 04/08/18 Time of Evaluation: 13:28 - Subjective Subjective: Neurology Progress Note: Mrs. Arreaga was seen and examined today at bedside. She continues to complain of back and right lower extremity pain and weakness. She was given solumedrol yesterday and is due for a dose today as well per Dr. Díaz's request. MRI of the lumbar spine was concerning for severe neural foraminal stenosis at L3/4. I discussed this with her and informed her that she should be on Neurontin for this pain as well. I suggested neurosurgical consultation for clearance. Objective - Vital Signs/Intake and Output Vital Signs (last 24 hours): Temp Pulse Resp BP Pulse Ox 98.2 F 82 18 136/92 H 96 04/08/18 06:00 04/08/18 11:04 04/08/18 06:00 04/08/18 11:04 04/08/18 06:00 - Medications Medications: Current Medications Enoxaparin Sodium (Lovenox) 40 mg SC DAILY [facility]; Protocol Last Admin: 04/08/18 11:02 Dose: 40 mg Gabapentin (Neurontin) 300 mg PO TID [facility]; Protocol Ibuprofen (Motrin Tab) 400 mg PO Q6H PRN PRN Reason: Pain, Mild (1-3) Last Admin: 04/07/18 11:03 Dose: 400 mg Lorazepam (Ativan) 2 mg IVP ONCE ONE; Protocol Stop: 04/08/18 13:27 Metoprolol Succinate (Toprol Xl) 50 mg PO DAILY [facility] Last Admin: 04/08/18 11:04 Dose: 50 mg Non-Formulary Medication (Teriflunomide [Aubagio]) 7 mg PO DAILY [facility] Last Admin: 04/08/18 11:34 Dose: Not Given Pantoprazole Sodium (Protonix Ec Tab) 40 mg PO 0600 [facility] Last Admin: 04/08/18 06:03 Dose: 40 mg - Labs Labs: 04/08/18 07:30 04/08/18 07:30 PT 10.4 SECONDS (9.4-12.5) 04/07/18 05:29 INR 0.92 04/07/18 05:29 APTT 32.3 Seconds (26.9-38.3) 04/07/18 05:29 - Constitutional Appears: Well - Head Exam Head Exam: ATRAUMATIC, NORMAL INSPECTION, NORMOCEPHALIC - Eye Exam Eye Exam: EOMI, Normal appearance, PERRL Pupil Exam: NORMAL ACCOMODATION, PERRL - ENT Exam ENT Exam: Mucous Membranes Moist, Normal Exam - Neck Exam Neck Exam: Full ROM, Normal Inspection. absent: Lymphadenopathy - Respiratory Exam Respiratory Exam: Clear to Ausculation Bilateral, NORMAL BREATHING PATTERN - Cardiovascular Exam Cardiovascular Exam: REGULAR RHYTHM, +S1, +S2. absent: Murmur - GI/Abdominal Exam GI & Abdominal Exam: Soft, Normal Bowel Sounds. absent: Tenderness - Extremities Exam Extremities Exam: Full ROM, Normal Capillary Refill, Normal Inspection. absent: Joint Swelling, Pedal Edema - Back Exam Back Exam: NORMAL INSPECTION - Neurological Exam Neurological Exam: Alert, Awake, CN II-XII Intact, Oriented x3 Neuro motor strength exam: Left Upper Extremity: 3, Right Upper Extremity: 4, Left Lower Extremity: 4, Right Lower Extremity: 4 Additional comments: Gait not tested due to pain and body habitus. Reflexes were diminished on the right L3/4 as compared with the left. Sensation is intact thoughout. - Psychiatric Exam Psychiatric exam: Normal Affect, Normal Mood - Skin Skin Exam: Dry, Intact, Normal Color, Warm Assessment and Plan (1) Lumbosacral radiculopathy at L4 Assessment & Plan: Will start neurontin 300 mg TID, and recommend neurosurgical evaluation. Follow up with Dr. Díaz for MS. Status: Acute
--- NOTE | 2018-04-08 15:53 | CP.PCM.PN ---
Subjective - Date & Time of Evaluation Date of Evaluation: 04/08/18 Time of Evaluation: 15:49 - Subjective Subjective: reviwed films very severe kyphoscoliosis discussed case with patient She would be best off treated by scoliosis specialist. Simple laminectomy of fusion in light of her curvature may be deremental without specfic understanding of scoliosis treatment. She can either be d/c and she can find someone who can treat her , or if she is unable to be d/c suggest transfer to a scoliosis service. i cannot recommend a referral or a hospital that can deal with her condition Suggest contacting the spine-ortho dept ast [facility] or [place] or [facility] Objective - Vital Signs/Intake and Output Vital Signs (last 24 hours): Temp Pulse Resp BP Pulse Ox 98.1 F 86 18 151/91 H 96 04/08/18 14:59 04/08/18 14:59 04/08/18 14:59 04/08/18 14:59 04/08/18 14:59 Intake and Output: 04/08/18 04/08/18 06:59 18:59 Intake Total 660 Balance 660 - Medications Medications: Current Medications Enoxaparin Sodium (Lovenox) 40 mg SC DAILY [facility]; Protocol Last Admin: 04/08/18 11:02 Dose: 40 mg Gabapentin (Neurontin) 300 mg PO TID [facility]; Protocol Ibuprofen (Motrin Tab) 400 mg PO Q6H PRN PRN Reason: Pain, Mild (1-3) Last Admin: 04/07/18 11:03 Dose: 400 mg Metoprolol Succinate (Toprol Xl) 50 mg PO DAILY [facility] Last Admin: 04/08/18 11:04 Dose: 50 mg Non-Formulary Medication (Teriflunomide [Aubagio]) 7 mg PO DAILY [facility] Last Admin: 04/08/18 11:34 Dose: Not Given Pantoprazole Sodium (Protonix Ec Tab) 40 mg PO 0600 [facility] Last Admin: 04/08/18 06:03 Dose: 40 mg - Labs Labs: 04/08/18 07:30 04/08/18 07:30 PT 10.4 SECONDS (9.4-12.5) 04/07/18 05:29 INR 0.92 04/07/18 05:29 APTT 32.3 Seconds (26.9-38.3) 04/07/18 05:29
[2018-04-08] MEDS ORDERED: TERIFLUNOMIDE 14 MG PO SCH (19:29)
[2018-04-09] MEDS: Pantoprazole 40 mg EC Tab PO SCH (06:16)
[2018-04-09 07:24] LABS: HEMOGLOBIN 12.4 g/dL (12.0-16.0); LYMPH # 0.8 (1.2-3.4); LYMPH % 6.4 % (22.0-35.0); MEAN CORPUSCULAR HGB CONC 31.8 g/dl (31.0-37.0); MEAN PLATELET VOLUME 10.7 fl (7.0-11.0); MONO % 8.7 % (1.0-6.0); RBC 4.43 10^6/uL (3.5-6.1); RED CELL DISTRIBUTION WIDTH 14.4 % (11.5-14.5); WHITE BLOOD COUNT 11.9 10^3/uL (4.5-11.0)
[2018-04-09 07:41] LABS: ALB/GLOB RATIO 1.1 (1.1-1.8); ALBUMIN 3.8 g/dL (3.0-4.8); ALT/SGPT 10 U/L (7-56); AST/SGOT 19 U/L (14-36); BLOOD UREA NITROGEN 26 mg/dL (7-21); CALCIUM 9.1 mg/dL (8.4-10.5); GFR NON-AFRICAN AMERICAN > 60
[2018-04-09] MEDS: Enoxaparin 40 mg Syringe SC SCH (10:35)
[2018-04-09] MEDS: Metoprolol Succinate 50 mg XL Tab PO SCH (10:38)
[2018-04-09] MEDS: TERIFLUNOMIDE 14 MG PO SCH (13:01)
--- NOTE | 2018-04-09 17:44 | CP.PCM.PN ---
<Renaldo Connor - Last Filed: 04/09/18 17:41> Subjective - Date & Time of Evaluation Date of Evaluation: 04/09/18 Time of Evaluation: 08:41 - Subjective Subjective: PGY-1 Medicine Progress note for Dr. Lombardo Patient seen and examined at bedside. No acute events overnight. She has no complaints. She denies any headache, chest pain, shortness of breath, abdominal pain, diarrhea, or urinary symptoms. Objective - Vital Signs/Intake and Output Vital Signs (last 24 hours): Temp Pulse Resp BP Pulse Ox 97.8 F 67 18 122/79 98 04/09/18 14:00 04/09/18 14:00 04/09/18 14:00 04/09/18 14:00 04/09/18 14:00 Intake and Output: 04/09/18 04/09/18 06:59 18:59 Intake Total 180 1020 Output Total 150 500 Balance 30 520 - Medications Medications: Current Medications Enoxaparin Sodium (Lovenox) 40 mg SC DAILY [facility]; Protocol Last Admin: 04/09/18 10:35 Dose: 40 mg Gabapentin (Neurontin) 300 mg PO TID [facility]; Protocol Last Admin: 04/09/18 14:23 Dose: 300 mg Ibuprofen (Motrin Tab) 400 mg PO Q6H PRN PRN Reason: Pain, Mild (1-3) Last Admin: 04/07/18 11:03 Dose: 400 mg Metoprolol Succinate (Toprol Xl) 50 mg PO DAILY [facility] Last Admin: 04/09/18 10:38 Dose: 50 mg Teriflunomide [ Aubagio] 14 Mg (Home Med) 14 mg PO DAILY [facility] Last Admin: 04/09/18 13:01 Dose: 14 mg Pantoprazole Sodium (Protonix Ec Tab) 40 mg PO 0600 [facility] Last Admin: 04/09/18 06:16 Dose: 40 mg - Labs Labs: 04/09/18 07:00 04/09/18 07:00 PT 10.4 SECONDS (9.4-12.5) 04/07/18 05:29 INR 0.92 04/07/18 05:29 APTT 32.3 Seconds (26.9-38.3) 04/07/18 05:29 - Additional Findings Additional findings: - Constitutional Appears: Well, Non-toxic, No Acute Distress - Head Exam Head Exam: ATRAUMATIC, NORMAL INSPECTION - Eye Exam Eye Exam: EOMI, Normal appearance Pupil Exam: NORMAL ACCOMODATION, PERRL - ENT Exam ENT Exam: Mucous Membranes Moist - Respiratory Exam Respiratory Exam: Clear to Ausculation Bilateral. absent: Rales, Rhonchi, Wheezes, Respiratory Distress - Cardiovascular Exam Cardiovascular Exam: REGULAR RHYTHM, +S1, +S2. absent: Gallop, Rubs, Murmur - GI/Abdominal Exam GI & Abdominal Exam: Soft, Normal Bowel Sounds. absent: Tenderness - Extremities Exam Extremities Exam: absent: Calf Tenderness, Pedal Edema - Neurological Exam Neurological Exam: Alert, Awake, CN II-XII Intact, Oriented x3 Neuro motor strength exam: Left Upper Extremity: 5, Right Upper Extremity: 5, Left Lower Extremity: 5, Right Lower Extremity: 4 Additional comments: Sensations intact in all extremities. - Psychiatric Exam Psychiatric exam: Normal Affect, Normal Mood - Skin Skin Exam: Dry, Intact, Normal Color, Warm Assessment and Plan - Assessment and Plan (Free Text) Assessment: Patient is a 47 year old female with a PMH of MS on Aubagio and HTN who presents for complaints of multiple falls for the last 2 weeks. [facility] for [facility]. Plan: Frequent falls - Likely 2/2 worsening of her MS - MRI spine: No acute fracture or marrow infiltrative process. Exaggerated thoracic kyphosis in the lower thoracic spine and exaggerated lumbar lordosis. Multilevel degenerative disc disease superimposed on a congenitally narrow spinal canal, worse at L3-4 with moderate to severe spinal canal stenosis and severe neural foraminal narrowing. - Neuro consulted, Dr. Egan - Neurosurgery consulted, Dr. Ferguson - Neurosurgery recommends patient to follow up with a spine-ortho at [facility] or [place] or [place] - Patient received 2 doses of Solumedrol 1g as per instructions of her outpatient neurologist, Dr. Díaz - Patient will need to follow up with Dr. Díaz in her office upon discharge - Continue Aubagio 14mg PO QD - High fall risk protocol - Physical therapy recommends patient to go to [facility] Right calf pain - LE duplex: No sonographic evidence for deep venous thrombosis in the visualized segments of both lower extremities. - Knee Xray: No acute displaced fracture or dislocation. - Start Gabapentin 300mg PO TID HTN - Continue home Metoprolol 50mg PO QD Prophylaxis - Lovenox 40mg SC QD - Protonix 40mg PO QD Disposition: Patient is medically cleared. Awaiting insurance authorization for [facility]). Patient was seen and case discussed with attending, Dr. Grupo Connor <Taj Lombardo - Last Filed: 04/09/18 19:54> Objective - Vital Signs/Intake and Output Vital Signs (last 24 hours): Temp Pulse Resp BP Pulse Ox 97.8 F 67 18 122/79 98 04/09/18 14:00 04/09/18 14:00 04/09/18 14:00 04/09/18 14:00 04/09/18 14:00 Intake and Output: 04/09/18 04/10/18 18:59 06:59 Intake Total 1020 180 Output Total 500 300 Balance 520 -120 - Medications Medications: Current Medications Enoxaparin Sodium (Lovenox) 40 mg SC DAILY [facility]; Protocol Last Admin: 04/09/18 10:35 Dose: 40 mg Gabapentin (Neurontin) 300 mg PO TID [facility]; Protocol Last Admin: 04/09/18 17:42 Dose: 300 mg Ibuprofen (Motrin Tab) 400 mg PO Q6H PRN PRN Reason: Pain, Mild (1-3) Last Admin: 04/07/18 11:03 Dose: 400 mg Metoprolol Succinate (Toprol Xl) 50 mg PO DAILY [facility] Last Admin: 04/09/18 10:38 Dose: 50 mg Teriflunomide [ Aubagio] 14 Mg (Home Med) 14 mg PO DAILY [facility] Last Admin: 04/09/18 13:01 Dose: 14 mg Pantoprazole Sodium (Protonix Ec Tab) 40 mg PO 0600 [facility] Last Admin: 04/09/18 06:16 Dose: 40 mg - Labs Labs: 04/09/18 07:00 04/09/18 07:00 PT 10.4 SECONDS (9.4-12.5) 04/07/18 05:29 INR 0.92 04/07/18 05:29 APTT 32.3 Seconds (26.9-38.3) 04/07/18 05:29 Attending/Attestation - Attestation I have personally seen and examined this patient.: Yes I have fully participated in the care of the patient.: Yes I have reviewed all pertinent clinical information, including history, physical exam and plan: Yes
[2018-04-10] MEDS: Pantoprazole 40 mg EC Tab PO SCH (06:39)
--- NOTE | 2018-04-10 07:25 | CP.PCM.PN ---
Subjective - Date & Time of Evaluation Date of Evaluation: 04/10/18 Time of Evaluation: 07:25 Objective - Vital Signs/Intake and Output Vital Signs (last 24 hours): Temp Pulse Resp BP Pulse Ox 98.4 F 70 20 125/82 97 04/09/18 21:52 04/09/18 21:52 04/09/18 21:52 04/09/18 21:52 04/09/18 21:52 Intake and Output: 04/10/18 04/10/18 06:59 18:59 Intake Total 420 Output Total 700 Balance -280 - Medications Medications: Current Medications Enoxaparin Sodium (Lovenox) 40 mg SC DAILY [facility]; Protocol Last Admin: 04/09/18 10:35 Dose: 40 mg Gabapentin (Neurontin) 300 mg PO TID [facility]; Protocol Last Admin: 04/09/18 17:42 Dose: 300 mg Ibuprofen (Motrin Tab) 400 mg PO Q6H PRN PRN Reason: Pain, Mild (1-3) Last Admin: 04/07/18 11:03 Dose: 400 mg Metoprolol Succinate (Toprol Xl) 50 mg PO DAILY [facility] Last Admin: 04/09/18 10:38 Dose: 50 mg Teriflunomide [ Aubagio] 14 Mg (Home Med) 14 mg PO DAILY [facility] Last Admin: 04/09/18 13:01 Dose: 14 mg Pantoprazole Sodium (Protonix Ec Tab) 40 mg PO 0600 [facility] Last Admin: 04/10/18 06:39 Dose: 40 mg - Labs Labs: 04/09/18 07:00 04/09/18 07:00 PT 10.4 SECONDS (9.4-12.5) 04/07/18 05:29 INR 0.92 04/07/18 05:29 APTT 32.3 Seconds (26.9-38.3) 04/07/18 05:29
[2018-04-10 07:34] VITALS: TEMP 98.2
[2018-04-10 07:46] LABS: EOS # 0.1 (0.0-0.7); EOS % 0.8 % (1.5-5.0); HEMOGLOBIN 11.8 g/dL (12.0-16.0); LYMPH # 3.1 (1.2-3.4); MEAN CORPUSCULAR HEMOGLOBIN 27.6 pg (25.0-35.0); MEAN PLATELET VOLUME 10.8 fl (7.0-11.0); MONO # 0.6 (0.1-0.6); MONO % 8.5 % (1.0-6.0); RBC 4.28 10^6/uL (3.5-6.1); RED CELL DISTRIBUTION WIDTH 14.6 % (11.5-14.5); WHITE BLOOD COUNT 7.1 10^3/uL (4.5-11.0)
[2018-04-10 08:10] LABS: ALB/GLOB RATIO 1.1 (1.1-1.8); ALBUMIN 3.6 g/dL (3.0-4.8); ALT/SGPT 15 U/L (7-56); AST/SGOT 20 U/L (14-36); BLOOD UREA NITROGEN 30 mg/dL (7-21); CALCIUM 8.8 mg/dL (8.4-10.5); GFR NON-AFRICAN AMERICAN > 60
[2018-04-10] MEDS: Metoprolol Succinate 50 mg XL Tab PO SCH (10:58)
[2018-04-10] MEDS: TERIFLUNOMIDE 14 MG PO SCH (10:58)
[2018-04-10] MEDS: Enoxaparin 40 mg Syringe SC SCH (10:58)
--- NOTE | 2018-04-10 13:09 | CP.PCM.DIS ---
Provider - Provider Date of Admission: 04/10/18 08:13 Attending physician: Davin Chung MD Consults: 04/07/18 08:29 Neurology Consult Routine Comment: Consulting Provider: Jared Egan Consulting Physician: Jared Egan Reason for Consult: LE weakness in setting of MS 04/08/18 13:14 Physician Consult Routine Comment: Consulting Provider: Jordin Ferguson Consulting Physician: Jordin Ferguson Reason for Consult: spinal canal narrowing Time Spent in preparation of Discharge (in minutes): 45 Diagnosis - Discharge Diagnosis (1) Exacerbation of multiple sclerosis Status: Chronic (2) Frequent falls Status: Acute (3) Lumbosacral radiculopathy at L4 Status: Chronic Hospital Course - Lab Results Lab Results: Most Recent Lab Values WBC 7.1 10^3/uL (4.5-11.0) D 04/10/18 07:00 RBC 4.28 10^6/uL (3.5-6.1) 04/10/18 07:00 Hgb 11.8 g/dL (12.0-16.0) L 04/10/18 07:00 Hct 38.1 % (36.0-48.0) 04/10/18 07:00 MCV 89.0 fl (80.0-105.0) 04/10/18 07:00 MCH 27.6 pg (25.0-35.0) 04/10/18 07:00 MCHC 31.0 g/dl (31.0-37.0) 04/10/18 07:00 RDW 14.6 % (11.5-14.5) H 04/10/18 07:00 Plt Count 232 10^3/uL (120.0-450.0) 04/10/18 07:00 MPV 10.8 fl (7.0-11.0) 04/10/18 07:00 Neut % (Auto) 47.7 % (50.0-68.0) L 04/10/18 07:00 Lymph % (Auto) 43.0 % (22.0-35.0) H 04/10/18 07:00 [place] % (Auto) 8.5 % (1.0-6.0) H 04/10/18 07:00 Eos % (Auto) 0.8 % (1.5-5.0) L 04/10/18 07:00 Baso % (Auto) 0.0 % (0.0-3.0) 04/10/18 07:00 Lymph # (Auto) 3.1 (1.2-3.4) 04/10/18 07:00 [place] # (Auto) 0.6 (0.1-0.6) 04/10/18 07:00 Eos # (Auto) 0.1 (0.0-0.7) 04/10/18 07:00 Baso # (Auto) 0.00 K/mm3 (0.0-2.0) 04/10/18 07:00 Absolute Neuts (auto) 3.40 (1.4-6.5) 04/10/18 07:00 PT 10.4 SECONDS (9.4-12.5) 04/07/18 05:29 INR 0.92 04/07/18 05:29 APTT 32.3 Seconds (26.9-38.3) 04/07/18 05:29 Sodium 140 mmol/L (132-148) 04/10/18 07:00 Potassium 4.2 mmol/L (3.6-5.0) 04/10/18 07:00 Chloride 106 mmol/L (98-107) 04/10/18 07:00 Carbon Dioxide 30 mmol/L (21-33) 04/10/18 07:00 Anion Gap 8 (10-20) L 04/10/18 07:00 BUN 30 mg/dL (7-21) H 04/10/18 07:00 Creatinine 0.7 mg/dl (0.7-1.2) 04/10/18 07:00 Est GFR ( Amer) > 60 04/10/18 07:00 Est GFR (Non-Af Amer) > 60 04/10/18 07:00 POC Glucose (mg/dL) 88 mg/dL (65-110) 04/09/18 21:34 Random Glucose 74 mg/dL (70-110) 04/10/18 07:00 Calcium 8.8 mg/dL (8.4-10.5) 04/10/18 07:00 Phosphorus 3.7 mg/dL (2.5-4.5) 04/08/18 07:30 Magnesium 2.0 mg/dL (1.7-2.2) 04/08/18 07:30 Total Bilirubin 0.4 mg/dL (0.2-1.3) 04/10/18 07:00 AST 20 U/L (14-36) 04/10/18 07:00 ALT 15 U/L (7-56) 04/10/18 07:00 Alkaline Phosphatase 77 U/L (38-126) 04/10/18 07:00 Lactate Dehydrogenase 435 U/L (333-699) 04/07/18 05:29 Total Creatine Kinase 59 U/L (35-230) 04/07/18 05:29 Troponin I < 0.01 ng/mL 04/07/18 05:29 Total Protein 6.7 g/dL (5.8-8.3) 04/10/18 07:00 Albumin 3.6 g/dL (3.0-4.8) 04/10/18 07:00 Globulin 3.1 gm/dL 04/10/18 07:00 Albumin/Globulin Ratio 1.1 (1.1-1.8) 04/10/18 07:00 Urine Color Yellow (YELLOW) 04/07/18 21:40 Urine Appearance Clear (CLEAR) 04/07/18 21:40 Urine pH 6.0 (4.7-8.0) 04/07/18 21:40 Ur Specific [place] 1.025 (1.005-1.035) 04/07/18 21:40 Urine Protein Negative mg/dL (<30 mg/dL) 04/07/18 21:40 Urine Glucose (UA) Negative mg/dL (NEGATIVE) 04/07/18 21:40 Urine Ketones Negative mg/dL (NEGATIVE) 04/07/18 21:40 Urine Blood Negative (NEGATIVE) 04/07/18 21:40 Urine Nitrate Negative (NEGATIVE) 04/07/18 21:40 Urine Bilirubin Negative (NEGATIVE) 04/07/18 21:40 Urine Urobilinogen 0.2 E.U./dL (<1 E.U./dL) 04/07/18 21:40 Ur Leukocyte Esterase Negative Zeus/uL (NEGATIVE) 04/07/18 21:40 - Hospital Course Hospital Course: 47 year old female with a PMH of MS on [place] and HTN who presents for complaints of multiple falls for the last 2 weeks. Patient states that she has fallen approximately 4 times in the last 2 weeks, however just recently has fallen 2 of those times in the last 24 hours. Patient notes that she feels weakness of the lower extremities and they give out under her. Also notes that she has likely been falling more as she has been having a harder time holding her urine which is also worsening. Patient does also admit that her vision has been a bit more blurry over the last month. Over the course of her stay, she got an MRI of the spine that showed MRI spine no acute fracture or marrow infiltrative process. Exaggerated thoracic kyphosis in the lower thoracic spine and exaggerated lumbar lordosis. Multilevel degenerative disc disease superimposed on a congenitally narrow spinal canal, worse at L3-4 with moderate to severe spinal canal stenosis and severe neural foraminal narrowing. She also had LE duplex that showed no sonographic evidence for deep venous thrombosis in the visualized segments of both lower extremities. Knee Xray showed no acute displaced fracture or dislocation. Patient was treated with 2 doses of Solumedrol as per instructions from her neurologist, Dr. Díaz. Neurology (Dr. Egan) and neurosurgery (Dr. Ferguson) were consulted. Recommendations were made for patient to follow up with a spine-ortho at [facility] or [facility]. Patient was evaluated by physical therapy and recommended that patient goes to [facility]. Patient agrees to the plans. She will be discharged to [facility] Patient is medically optimized for discharge to [facility]. Instructed patient to return to ED for worsening or newly concerning symptoms. Discharge Exam - Head Exam Head Exam: ATRAUMATIC, NORMAL INSPECTION - Additional Findings Additional findings: - Constitutional Appears: Well, Non-toxic, No Acute Distress - Head Exam Head Exam: ATRAUMATIC, NORMAL INSPECTION - Eye Exam Eye Exam: EOMI, Normal appearance Pupil Exam: NORMAL ACCOMODATION, PERRL - ENT Exam ENT Exam: Mucous Membranes Moist - Respiratory Exam Respiratory Exam: Clear to Ausculation Bilateral. absent: Rales, Rhonchi, Wheezes, Respiratory Distress - Cardiovascular Exam Cardiovascular Exam: REGULAR RHYTHM, +S1, +S2. absent: Gallop, Rubs, Murmur - GI/Abdominal Exam GI & Abdominal Exam: Soft, Normal Bowel Sounds. absent: Tenderness - Extremities Exam Extremities Exam: absent: Calf Tenderness, Pedal Edema - Neurological Exam Neurological Exam: Alert, Awake, CN II-XII Intact, Oriented x3 Neuro motor strength exam: Left Upper Extremity: 5, Right Upper Extremity: 5, Left Lower Extremity: 5, Right Lower Extremity: 4 Additional comments: Sensations intact in all extremities. - Psychiatric Exam Psychiatric exam: Normal Affect, Normal Mood - Skin Skin Exam: Dry, Intact, Normal Color, Warm Discharge Plan - Discharge Medications Prescriptions: Solifenacin Succinate [Vesicare] 5 mg PO DAILY #30 tablet - Follow Up Plan Condition: STABLE Disposition: HOME/ ROUTINE Instructions: Multiple Sclerosis in Adults, Dangers of Secondhand Smoke, Preventing Falls, Flu Vaccine Additional Instructions: 1. Resume all home medications as prescribed by your Neurologist and primary care doctor. 2. Follow up with your neurologist, Dr. Díaz as soon as possible after discharge from sub-acute rehab facility. 3. Follow up to see a scoliosis specialist as discussed before. You can follow up with spine-ortho department at [facility] or [facility]. 4. Continue to work with physical therapy. 5. Return to the emergency room for worsening or newly concerning symptoms. Referrals: Zhang Díaz MD [Staff Provider] -
[2018-04-10 14:40] VITALS: BP 124/85; PULSE 69; RESP 20; O2SAT 98
== END 2018-04-10 16:17 | disposition home or self-care (01) | DRG 60 ==
LOC: ED 04:35 → ERH 06:52 → 5RSO 09:25 → OBSVTOIN 04-10 08:13
PROVIDERS: ADMIT Internal Medicine; ATTEND Internal Medicine
DX: G35 Multiple sclerosis (principal); E11.9 Type 2 diabetes mellitus without complications; E28.2 Polycystic ovarian syndrome; I10 Essential (primary) hypertension; M40.204 Unspecified kyphosis, thoracic region; M40.56 Lordosis, unspecified, lumbar region; M48.061 Spinal stenosis, lumbar region without neurogenic claudication; M54.17 Radiculopathy, lumbosacral region; R29.6 Repeated falls; Z98.891 History of uterine scar from previous surgery; Z88.8 Allergy status to other drugs, medicaments and biological substances